=== PATIENT | female | born 1940 | race Caucasian/White ===

== ENCOUNTER 2016-09-26 18:46 | Inpatient (IN) | payer MEDICARE, OTHER ==
[~2016-09-26] VITALS: Ht 167.6 cm; Wt 86.3 kg
[~2016-09-26 18:46] MED LIST: ACET325T21 PO; ACET500T68 PO; ASPI-482 PO; ATOR20TA58 PO; BUPR100T11 PO; BUPR100T6 PO; CALC500T30 PO; CHOL-5 PO; CYAN10002 IM; CYAN500T17 PO; DONE10TA7 PO; DULO30CA43 PO; FERR325T58 PO; INSU100C4 SQ; INSU100I17 SQ; INSU100V13 SQ; LEVO25TA4 PO; LEVO75TA5 PO; LEXAPRO10 MG PO; LINA5TAB4 PO; MAGN2400 PO; MAGN400T3 PO; MEMA10TA PO; METF10002 PO; MULT-208 PO; OLAN2.5T3 PO; OLAN2.5T5 PO; PRADAXA PO; SENN8.6C2 PO; VITAMIN D3 PO; [UNRECOGNIZED DRUG - REMARK]
[2016-09-26] MEDS ORDERED: IV NORMAL SALINE 1,000ML 1,000 ML IV SCH ×2 (18:52→20:00)
--- NOTE | 2016-09-26 19:15 | EKG ---
[address] [address] Test Date: 2016-09-26 Test Time: 19:05:50 Pat Name: JOE MARTE Department: Room: Gender: F Tailer Out: BRADLEY : 1940 Requested By: LATRELL CHAIREZ Order Number: [id number] Reading MD: Tru Berg Measurements Intervals [place] Rate: 106 P: 36 NV: 174 QRS: -34 QRSD: 94 T: 3 QT: 324 QTc: 432 Interpretive Statements SINUS TACHYCARDIA ABNORMAL LEFT AXIS DEVIATION QRS(T) CONTOUR ABNORMALITY CONSIDER ANTEROSEPTAL MYOCARDIAL DAMAGE CONSISTENT WITH INFERIOR INFARCT PROBABLY OLD RI6.01 Unconfirmed report Compared to ECG 02/09/2015 16:43:08 Myocardial infarct finding now present Sinus rhythm no longer present Prolonged QT interval no longer present Electronically Signed On 09-29-2016 10:46:40 CDT by Tru Berg
--- NOTE | 2016-09-26 19:18 | PHYS DOC ---
Past History Past Medical History: A-Fib, Constipation, Dementia, Depression, Diabetes, Hypertension, Hypothyroid, Pneumonia Past Surgical History: No Surgical History, Other Alcohol Use: None Drug Use: None Adult General Chief Complaint Chief Complaint: HYPERGLYCEMIA HPI HPI Patient is a 76 year old sex who presents to the emergency department with initial report for evaluation of suicidal ideation per the patient's senior care. However on arrival to the emergency department, the patient denies any thoughts of suicide. Patient denies any other complaints. Patient's blood sugar was checked prior to arrival and was found to be critically high. Patient has history of dementia and diabetes mellitus currently on insulin therapy. The patient was given 10 units of insulin prior to arrival by EMS. The patient currently is oriented to herself but is disoriented to location. Patient is a poor historian. Review of Systems Review of Systems Caveat: Patient demented and poor historian Constitutional: Denies fever or chills [] Eyes: Denies change in visual acuity, redness, or eye pain [] HENT: Denies nasal congestion or sore throat [] Respiratory: Denies cough or shortness of breath [] Cardiovascular: Denies chest pain or edema [] GI: Denies abdominal pain, nausea, vomiting, bloody stools or diarrhea [] : Denies dysuria or hematuria [] Musculoskeletal: Denies back pain or joint pain [] Integument: Denies rash or skin lesions [] Neurologic: Denies headache, focal weakness or sensory changes [] Current Medications Current Medications Current Medications Medications (Trade) Dose Ordered Sig/Rodolfo Start Time Stop Time Status Last Admin Dose Admin Sodium Chloride 1,000 ml @ 1,000 mls/hr Q1H 09/26/16 18:52 09/26/16 19:51 UNV Allergies Allergies Allergies Coded Allergies Type Severity Reaction Last Updated Verified codeine Allergy Intermediate 07/07/14 Yes Physical Exam Physical Exam Constitutional: Alert, afebrile, appears in chronically poor health [] HENT: Normocephalic, atraumatic, bilateral external ears normal, oropharynx moist, no oral exudates, nose normal. [] Eyes: PERRLA, EOMI, conjunctiva normal, no discharge. [] Neck: Normal range of motion, no tenderness, supple, no stridor. [] Cardiovascular: Sinus tachycardia, regular rhythm, no murmur [] Lungs & Thorax: Bilateral breath sounds clear to auscultation [] Abdomen: Bowel sounds normal, soft, no tenderness, no masses, no pulsatile masses. [] Skin: Warm, dry, no erythema, no rash. [] Back: No tenderness, no CVA tenderness. [] Extremities: No tenderness, no cyanosis, no clubbing, ROM intact, no edema. [] Neurologic: Alert and oriented to self only, normal motor function, normal sensory function, no focal deficits noted. [] Current Patient Data Vital Signs Vital Signs Date Time Temp Pulse Resp B/P (MAP) Pulse Ox O2 Delivery O2 Flow Rate FiO2 09/26/16 18:46 99.5 109 20 96 Nasal Cannula 3.0 EKG EKG Interpreted by me: Heart rate 106, sinus tachycardia, normal intervals, leftward axis, no acute ST/T-wave abnormalities present [] Radiology/Procedures Radiology/Procedures One view AP chest x-ray interpreted by me: Multifocal infiltrates bilaterally, no effusions, normal cardiac silhouette [] Course & Med Decision Making Course & Med Decision Making Pertinent Labs and Imaging studies reviewed. (See chart for details) The patient's chest x-ray shows evidence of multifocal pneumonia. Given patient' s senior care setting, the patient will be started on treatment with vancomycin , Zosyn, and Levaquin for coverage of healthcare associated pneumonia. Patient also started on IV fluids in the emergency department. The patient was noted to have an elevated lactic acid level which could be due to dehydration from uncontrolled diabetes mellitus versus possible sepsis given the finding of pneumonia. The patient's vital signs and lab work otherwise do not meet criteria for severe sepsis at this time, nevertheless the patient will receive a 30 mL per kilo bolus of fluids. I spoke with Dr. Cohen who accepted care patient in hospital. Dragon Disclaimer Dragon Disclaimer This chart was dictated in whole or in part using Voice Recognition software in a busy, high-work load, and often noisy Emergency Department environment. It may contain unintended and wholly unrecognized errors or omissions. Departure Departure: Impression: Primary Impression: HCAP (healthcare-associated pneumonia) Additional Impressions: Uncontrolled diabetes mellitus Dehydration Lactic acidosis Disposition: ADMITTED INPATIENT Admitting Physician: Paramjit Cohen Condition: GUARDED Referrals: PARAMJIT COHEN DO (PCP) Problem Qualifiers Additional Impressions: Uncontrolled diabetes mellitus Diabetes mellitus type: type 1 Diabetes mellitus complication status: with hyperglycemia Qualified Codes: E10.65 - Type 1 diabetes mellitus with hyperglycemia LATRELL CHAIREZ MD Sep 26, 2016 19:18
[2016-09-26 19:28] LABS: BASO # 0.1 x10^3/uL (0.0-0.2); BASO % 1 % (0-3); EOS # 0.4 x10^3/uL (0.0-0.7); EOS % 4 % (0-3); HEMATOCRIT 37.1 % (36.0-47.0); HEMOGLOBIN 11.7 g/dL (12.0-15.5); LYMPH % 9 % (24-48); MEAN CORPUSCULAR HEMOGLOBIN 26 pg (25-35); MEAN CORPUSCULAR HGB CONC 32 g/dL (31-37); MEAN CORPUSCULAR VOLUME 84 fL (79-100); MONO # 1.2 x10^3/uL (0.0-1.1); MONO % 11 % (0-9); NEUT # 8.8 x10^3uL (1.8-7.7); NEUT % 77 % (31-73); PLATELET COUNT 277 x10^3/uL (140-400); RED BLOOD COUNT 4.44 x10^6/uL (3.50-5.40); WHITE BLOOD COUNT 11.4 x10^3/uL (4.0-11.0)
[2016-09-26] MEDS ORDERED: PIP/TAZO PER PHARMACY MC PRN (19:30)
[2016-09-26 19:58] LABS: ALBUMIN 3.1 g/dL (3.4-5.0); ALBUMIN/GLOBULIN RATIO 0.8 (1.0-1.7); CALCIUM 9.3 mg/dL (8.5-10.1); CREATININE 1.6 mg/dL (0.6-1.0); GFR 31.4; POTASSIUM 4.4 mmol/L (3.5-5.1); TOTAL BILIRUBIN 0.5 mg/dL (0.2-1.0); TOTAL PROTEIN 6.8 g/dL (6.4-8.2)
[2016-09-26 20:04] LABS: CLARITY,URINE CLEAR; COLOR,URINE STRAW
[2016-09-26 20:05] LABS: AMORPHOUS SEDIMENT,UR PRESENT /HPF; BACTERIA,URINE 0 /HPF (0-FEW); BILIRUBIN,URINE NEG (NEG); GLUCOSE,URINE >=1000 mg/dL (NEG); NITRITE,URINE NEG (NEG); SQUAMOUS EPITHELIAL CELL,UR OCC /LPF; UROBILINOGEN,URINE 0.2 mg/dL (0.2 mg/dL); WBC,URINE OCC /HPF (0-4)
[2016-09-26] MEDS ORDERED: VANCOMYCIN 1 GM VIAL. ONE (20:21)
[2016-09-26] MEDS ORDERED: IV NORMAL SALINE 500ML 500 ML ONE (20:21)
[2016-09-26] MEDS ORDERED: VANCOMYCIN 2 GM in IV NORMAL SALINE 500ML 500 ML IV ONE (20:30)
[2016-09-26] MEDS ORDERED: DEXTROSE 50% 25 GM / 50ML DISP.SYRIN. IV PRN (20:30)
[2016-09-26] MEDS ORDERED: ONDANSETRON PF 4 MG/2 ML VIAL. IV PRN (20:30)
[2016-09-26] MEDS ORDERED: ACETAMINOPHEN 325 MG TABLET PO PRN (20:30)
[2016-09-26] MEDS ORDERED: INSULIN DETEMIR 300 UNITS/3 ML INSULN.PEN. SQ SCH (21:00)
[2016-09-26 21:48] VITALS: BP 120/64
[2016-09-26] MEDS: INSULIN ASPART 300 UNITS/3 ML INSULN.PEN SQ SCH (22:03)
[2016-09-26] MEDS: VANCOMYCIN PER PHARMACY MC PRN (22:09)
[2016-09-26] MEDS ORDERED: OLAN5TAB9 PO (23:48)
[2016-09-26] MEDS ORDERED: MIRT15TA PO (23:48)
[2016-09-26] MEDS ORDERED: ENOX40DI SQ (23:50)
[2016-09-27] MEDS: PIPERACILLIN/TAZOBACTAM 3.375 GM in IV NORMAL SALINE 50ML 50 ML IV SCH ×2 (01:11→05:43)
[2016-09-27] MEDS: IV NORMAL SALINE 1,000ML 1,000 ML IV SCH ×3 (01:12→20:29)
--- NOTE | 2016-09-27 03:33 | ACF ---
Admission Criteria Forms DIABETES Clinical Indications for Admission to Inpatient Care (Place 'X' for any and all applicable criteria): Admission is indicated by presence of ALL (if I & II) or ANY ONE (if III or IV) of the following (1)(2)(3)(4): [ ]I. Diabetes is uncontrolled as indicated by ANY ONE of the following: [ ]a) Diabetic ketoacidosis as indicated by ALL of the following (8): [ ]i) Hyperglycemia (eg, plasma glucose greater than 200 mg/ dL (11.1 mmol/L)) [ ]ii) Acidosis (eg, arterial pH less than 7.30, serum bicarbonate level less than 15 mEq/L (mmol/L)) [ ]iii) Moderate ketonuria or ketonemia [ ]b) Hyperglycemic hyperosmolar state as indicated by ALL of the following(9)(10): [ ]i) Neurologic dysfunction (eg, stupor, coma, hemiparesis , seizure)(13) [ ]ii) Plasma glucose greater than 600 mg/dL (33.3 mmol/L) [ ]iii) Serum osmolality greater than 320 mOsm/kg (mmol/kg) [ ]c) Severe signs or symptoms secondary to hyperglycemia indicated by ANY ONE of the following: [ ]i) Altered mental status(10) [ ]ii) Significant hypovolemia or dehydration [ ]iii) Intractable nausea or vomiting [ ]iv) Unexplained fever or severe infection [ ]v) Severe electrolyte abnormality (eg, hypokalemia, hyperkalemia, hypernatremia) [ ]II. Management at other levels of care (Also use Diabetes: Observation Care as appropriate) is not feasible because of ANY ONE of the following: [ ]a) Condition was not adequately corrected with treatment at other levels of care. [ ]b) Treatment at other levels of care is not appropriate because of condition severity (eg, hyperosmolar coma). [X]III. Contraindications and/or Inappropriate clinical situations for Observational Care in patients with Diabetes, when ANY ONE of the following is required: [X]a) Patient require specific diagnostic workup or therapeutic intervention 22 [ ]b) Patient with abnormal vital signs or altered mental status 23 [ ]IV. General contraindications and/or Inappropriate clinical situations for Observational Care in patients with Diabetes, when ANY ONE of the following is required: [ ]a) Prediction of prolongation of LOS based on ANY ONE of the following may be considered as a contraindication for observational care 2, 3, 4, 5, 6, 7, 8, 9, 10, 11 [ ]i) Age > 65 yrs. [ ]ii) Patient arriving by ambulance [ ]iii) Patient with high acuity [ ]iv) Patient requiring vital sign monitoring [ ]v) Patient on IV medication [ ]b) Systolic blood pressures 180mmHg 3,12 [ ]c) Patient with altered mental status including delirium and other alteration of consciousness, (3) [ ]d) Patient whose discharge disposition will be to a usp home or rehabilitation home should not be managed in Emergency Department Observation Unit. CMS rule requires 3 days hospital stay before such placement.3,13 [ ]e) Patient with failure to thrive due to broad array of etiologies 3,16,17 [ ]f) Inability to ambulate 3,14 Extended stay beyond goal length of stay may be needed for(3)(20): [ ]a) Treatment of precipitating causes [ ]b) Development of hypoglycemia [ ]c) Complications of treatment [ ]d) Complications of decompensated diabetes (eg, acute gastric dilatation, persistent metabolic or neurologic derangement) [ ]e) Active Comorbidities [ ]f) Older patients( 65 years or older) The original [employer] content created by [employer] has been revised. The portions of the content which have been revised are identified through the use of italic text or in bold,and [facility] has neither reviewed nor approved the modified material. All other unmodified content is copyright [employer]. Please see references footnoted in the original [facility] edition 2015 Admission Criteria Met?: Yes JOEL ESCALANTE Sep 27, 2016 03:33
[2016-09-27 05:26] VITALS: BP 116/68
[2016-09-27 06:15] LABS: BASO # 0.1 x10^3/uL (0.0-0.2); BASO % 1 % (0-3); EOS # 1.1 x10^3/uL (0.0-0.7); EOS % 12 % (0-3); HEMATOCRIT 34.5 % (36.0-47.0); HEMOGLOBIN 11.3 g/dL (12.0-15.5); LYMPH # 1.2 x10^3/uL (1.0-4.8); LYMPH % 13 % (24-48); MEAN CORPUSCULAR HEMOGLOBIN 27 pg (25-35); MEAN CORPUSCULAR HGB CONC 33 g/dL (31-37); MEAN CORPUSCULAR VOLUME 81 fL (79-100); NEUT # 5.9 x10^3uL (1.8-7.7); NEUT % 64 % (31-73); PLATELET COUNT 252 x10^3/uL (140-400); RED BLOOD COUNT 4.27 x10^6/uL (3.50-5.40); RED CELL DISTRIBUTION WIDTH 15.5 % (11.5-14.5); WHITE BLOOD COUNT 9.3 x10^3/uL (4.0-11.0)
[2016-09-27 06:22] LABS: CALCIUM 9.1 mg/dL (8.5-10.1); GFR 54.1
[2016-09-27 06:23] LABS: POTASSIUM 3.7 mmol/L (3.5-5.1)
[2016-09-27 06:28] LABS: MONO % 11 % (0-9)
[2016-09-27] MEDS: INSULIN ASPART 300 UNITS/3 ML INSULN.PEN SQ SCH ×6 (08:00→20:35)
[2016-09-27] MEDS ORDERED: ACETAMINOPHEN 325 MG TABLET PO PRN (08:45)
--- NOTE | 2016-09-27 08:57 | RAD ---
EXAM: Chest one view. HISTORY: Cough, weakness, congestion. COMPARISON: 02/09/2015. FINDINGS: A frontal view of the chest is obtained. Bilateral interstitial and airspace opacities are significantly increased since the prior study. Lung volumes are smaller. There is no pneumothorax or pleural effusion. The heart is not enlarged. IMPRESSION: 1. Increased interstitial and airspace opacities may indicate interval worsening of interstitial lung disease and fibrosis, and/or superimposed multifocal pneumonia on pre-existing interstitial disease. Correlate for evidence of infection.
[2016-09-27] MEDS: buPROPion 100 MG TABLET PO SCH ×2 (09:00→20:29)
[2016-09-27] MEDS ORDERED: MAGNESIUM HYDROXIDE 2,400 MG/30 ML ORAL.SUSP. PO PRN (09:30)
[2016-09-27] MEDS: ASPIRIN ENTERIC COATED 81 MG TABLET.DR. PO SCH (09:37)
[2016-09-27] MEDS: MAGNESIUM OXIDE 400 MG TABLET PO SCH (09:38)
[2016-09-27] MEDS: MEMANTINE 10 MG TABLET. PO SCH ×2 (09:38→20:30)
[2016-09-27] MEDS: FERROUS SULFATE 325 MG TABLET PO SCH (09:38)
[2016-09-27] MEDS: LINAGLIPTIN 5 MG TABLET PO SCH (09:38)
[2016-09-27] MEDS: MULTIVITAMIN with MINERAL TABLET. PO SCH (09:39)
[2016-09-27] MEDS: ENOXAPARIN 40 MG/0.4 ML DISP.SYRIN. SQ SCH (09:39)
[2016-09-27 11:37] VITALS: BP 123/61
[2016-09-27] MEDS: PIPERACILLIN/TAZOBACTAM 4.5 GM in IV NORMAL SALINE 50ML 50 ML IV SCH ×2 (12:03→20:29)
[2016-09-27] MEDS ORDERED: IOHEXOL 300 MG/ML 75 ML VIAL. IV ONE (12:30)
--- NOTE | 2016-09-27 13:42 | HP ---
ADMIT DATE: 09/27/2016 REASON FOR ADMISSION: Pneumonia. HISTORY OF PRESENT ILLNESS: This is a 76-year-old resident of [facility] [place]. She was initially brought over to the Emergency Room because she was complaining of suicidal ideation, which she denied upon arriving at the Emergency Room. However, the patient's blood sugar was markedly high, it was high at 509 and subsequent workup revealed lactic acidosis and positive severe sepsis screen. The patient was found to possibly have multilobar pneumonia and was admitted. PAST MEDICAL HISTORY: The patient recently broke her hip in early August and was treated with left hip hemiarthroplasty. She was returned to the [facility] on 08/19/2016 where she was on snf services. She was diagnosed with pneumonia on 09/02/2016 and had a Z-CHAPARRO. Other medical problems include dementia, which has been at least 5 years, previous history of pneumonia, history of falls, left hip fracture, major depressive disorder. She has also broken a bone in the previous . She has type 2 diabetes, poorly controlled because she is noncompliant. ALLERGIES: CODEINE. MEDICATIONS: Reviewed. As stated, the patient often refuses her insulin and refuses to have her blood sugar checked. SOCIAL HISTORY: Resides at [facility]. She does have a son who is emergency contact, but does not visit her very much. She is a former smoker, does not smoke at [facility]. Alcohol, unknown. REVIEW OF SYSTEMS: The patient just states she is tired and does not feel well. OBJECTIVE: VITAL SIGNS: Temp yesterday was 99.5, pulse 109, blood pressure 138/53, pulse ox was 96% on 3 liters. GENERAL: Color is poor, she has a grayish color. Her tongue was moist. Could not see her throat. NECK: Supple. LUNGS: With coarse breath sounds bilaterally. CARDIOVASCULAR: Regular rhythm and rate. ABDOMEN: Soft, nontender. EXTREMITIES: Without edema. LABORATORY DATA: White blood cell count yesterday was 11.4 with some elevated monocytes. Chemistry: She had an initial glucose of 509. BNP 570. Dilute urine glucose greater than a 1000. Chest x-ray. The patient has extensive pulmonary fibrosis and probably interstitial multifocal pneumonia. ASSESSMENT: 1. Multifocal pneumonia. 2. Interstitial lung fibrosis, worsening. 3. Type 2 diabetes, poor control. 4. Dementia. 5. Fall risk. 6. Recent hip fracture. 7. Positive severe sepsis screen, on antibiotics. 8. Chronic kidney disease stage III. 9.Recent left hip fracture. PLAN: PT and OT, IV antibiotics, monitoring glucose to check from falling. PARAMJIT FUNK DO DR: SUSAN/kenya JOB#: [id number] / [id number]
--- NOTE | 2016-09-27 14:03 | RAD ---
EXAM: CT OF THE CHEST WITH INTRAVENOUS CONTRAST. HISTORY: Shortness of breath, cough, pulmonary fibrosis. TECHNIQUE: Computed tomography of the chest was performed after the intravenous administration of 75 mL Omnipaque 300. COMPARISON: None. FINDINGS: Images of the upper abdomen reveal no acute abnormality. Bone windows reveal no suspicious lesions. Prominent mediastinal lymph nodes can be seen in the setting of pulmonary fibrosis. A subaortic node measures 16 x 10 mm. There are no clearly pathologically enlarged nodes. There is no pleural or pericardial effusion. The heart is not enlarged. There is diffuse basilar and subpleural predominant septal line thickening and cystic change consistent with interstitial lung disease and fibrosis. There is a superimposed component of groundglass opacity. A more discrete nodule in the right upper lobe on image 52 measures 12 x 10 mm. There is diffuse respiratory motion artifact. This limits assessment for pulmonary emboli but none are seen. IMPRESSION: 1. Interstitial lung disease and fibrosis. A component of groundglass opacity may nonspecific interstitial pneumonia, or indicate superimposed mild to moderate pulmonary edema or atypical pneumonia. 2. A 12 mm solid nodule in the right upper lobe is indeterminate. Percutaneous biopsy, PET/CT or follow-up is recommended if long-term stability is not already known. 3. Chronic mediastinal lymph nodes can be seen in the setting of interstitial lung disease. *One or more of the following individualized dose reduction techniques were utilized for this examination: 1. Automated exposure control. 2. Adjustment of the mA and/or kV according to patient size. 3. Use of iterative reconstruction technique.
[2016-09-27 15:42] VITALS: BP 101/65
[2016-09-27 18:48] VITALS: BP 109/62
[2016-09-27] MEDS: ATORVASTATIN CALCIUM 20 MG TABLET PO SCH (20:29)
[2016-09-27] MEDS: MIRTAZAPINE 15 MG TABLET PO SCH (20:30)
[2016-09-27] MEDS: SENNOSIDES 8.6 MG TABLET PO SCH (20:30)
[2016-09-27] MEDS: VANCOMYCIN 1.25 GM in IV NORMAL SALINE 250ML 250 ML IV SCH (20:30)
[2016-09-27] MEDS: DONEPEZIL HCL 10 MG TABLET PO SCH (20:30)
[2016-09-27] MEDS: OLANZapine 5 MG TABLET PO SCH (20:30)
[2016-09-27] MEDS: INSULIN DETEMIR 300 UNITS/3 ML INSULN.PEN. SQ SCH (20:37)
[2016-09-28 00:08] VITALS: BP 109/69
[2016-09-28] MEDS: PIPERACILLIN/TAZOBACTAM 4.5 GM in IV NORMAL SALINE 50ML 50 ML IV SCH ×5 (00:12→23:13)
[2016-09-28 06:09] VITALS: BP 123/76
[2016-09-28] MEDS ORDERED: FUROSEMIDE 20 MG/2 ML VIAL IVP ONE (07:00)
[2016-09-28] MEDS: INSULIN ASPART 300 UNITS/3 ML INSULN.PEN SQ SCH ×7 (08:00→19:54)
[2016-09-28] MEDS ORDERED: INSULIN ASPART 300 UNITS/3 ML INSULN.PEN SQ ONE ×2 (08:00→12:45)
[2016-09-28] MEDS: ENOXAPARIN 40 MG/0.4 ML DISP.SYRIN. SQ SCH (08:25)
[2016-09-28] MEDS: CHOLECALCIFEROL (VITAMIN D3) 1,000 UNIT TABLET PO SCH (08:26)
[2016-09-28] MEDS: MAGNESIUM OXIDE 400 MG TABLET PO SCH (08:27)
[2016-09-28] MEDS: ASPIRIN ENTERIC COATED 81 MG TABLET.DR. PO SCH (08:27)
[2016-09-28] MEDS: LINAGLIPTIN 5 MG TABLET PO SCH (08:27)
[2016-09-28] MEDS: SENNOSIDES 8.6 MG TABLET PO SCH ×2 (08:27→20:02)
[2016-09-28] MEDS: FERROUS SULFATE 325 MG TABLET PO SCH (08:27)
[2016-09-28] MEDS: MULTIVITAMIN with MINERAL TABLET. PO SCH (08:27)
[2016-09-28] MEDS: MEMANTINE 10 MG TABLET. PO SCH ×2 (08:27→19:51)
[2016-09-28] MEDS: INSULIN DETEMIR 300 UNITS/3 ML INSULN.PEN. SQ SCH ×2 (09:00→19:53)
--- NOTE | 2016-09-28 09:54 | RAD ---
EXAM: Chest one view. HISTORY: Pulmonary edema. COMPARISON: 09/26/2016. FINDINGS: A frontal view of the chest is obtained. Bilateral interstitial and airspace opacities persist. The inspiration is smaller than on the prior study. There is no pneumothorax or pleural effusion. The heart is not enlarged. There are atherosclerotic calcifications of the aorta. IMPRESSION: 1. Stable to mildly increased pulmonary edema or multifocal pneumonia superimposed on interstitial fibrosis.
[2016-09-28] MEDS: buPROPion 100 MG TABLET PO SCH ×3 (10:10→21:00)
[2016-09-28 12:14] LABS: BASO # 0.1 x10^3/uL (0.0-0.2); BASO % 1 % (0-3); EOS # 0.6 x10^3/uL (0.0-0.7); EOS % 6 % (0-3); HEMATOCRIT 36.6 % (36.0-47.0); HEMOGLOBIN 11.6 g/dL (12.0-15.5); LYMPH # 0.7 x10^3/uL (1.0-4.8); LYMPH % 7 % (24-48); MEAN CORPUSCULAR HEMOGLOBIN 26 pg (25-35); MEAN CORPUSCULAR HGB CONC 32 g/dL (31-37); MEAN CORPUSCULAR VOLUME 83 fL (79-100); MONO # 0.9 x10^3/uL (0.0-1.1); MONO % 9 % (0-9); NEUT # 7.7 x10^3uL (1.8-7.7); NEUT % 78 % (31-73); PLATELET COUNT 249 x10^3/uL (140-400); RED CELL DISTRIBUTION WIDTH 15.7 % (11.5-14.5); WHITE BLOOD COUNT 9.9 x10^3/uL (4.0-11.0)
[2016-09-28 12:26] LABS: ALBUMIN 2.7 g/dL (3.4-5.0); ALBUMIN/GLOBULIN RATIO 0.6 (1.0-1.7); CALCIUM 9.2 mg/dL (8.5-10.1); CREATININE 1.5 mg/dL (0.6-1.0); GFR 33.9; POTASSIUM 4.3 mmol/L (3.5-5.1); TOTAL BILIRUBIN 0.7 mg/dL (0.2-1.0)
[2016-09-28 12:32] VITALS: BP 107/53
[2016-09-28] MEDS: LEVOTHYROXINE 25 MCG TABLET. PO SCH (12:40)
[2016-09-28] MEDS: FUROSEMIDE 20 MG/2 ML VIAL IVP SCH (16:20)
[2016-09-28 18:58] VITALS: BP 107/55
[2016-09-28] MEDS: OLANZapine 5 MG TABLET PO SCH ×3 (19:55→23:00)
[2016-09-28] MEDS: MIRTAZAPINE 15 MG TABLET PO SCH ×3 (19:55→23:00)
[2016-09-28] MEDS: ATORVASTATIN CALCIUM 20 MG TABLET PO SCH ×2 (19:55→21:00)
[2016-09-28] MEDS: DONEPEZIL HCL 10 MG TABLET PO SCH ×2 (19:55→21:00)
--- NOTE | 2016-09-28 20:11 | PN ---
DATE: 09/28/2016 PROBLEMS: 1. Severe pulmonary fibrosis. 2. Probable pulmonary edema. 3. Underlying pneumonia. 4. Type 2 diabetes, poor control. 5. Dementia. 6. Fall risk. 7. Recent left hip fracture. 8. Positive severe sepsis screen on antibiotics, doing better. 9. Chronic kidney disease stage 3. 10. Incidental finding of 12 mm right upper lobe nodule and also for interstitial pneumonia or atypical pneumonia. NARRATIVE: The patient is a little short of breath this morning fatigued. She is requiring some oxygen, but even a couple liters gets her sat up to 99. The patient was given some 20 mg Lasix IV yesterday. She did have a lot of urine, but it was all incontinent will probably have to put in a Jean today. OBJECTIVE: VITAL SIGNS: Intake 2515, output 6 ____ weights up 2 pounds. Sats 99 taken by me. GENERAL: The color is grayish. She is a mildly tachypneic at approximately 24. LUNGS: Coarse rhonchi heard in the bases. CARDIOVASCULAR: Regular rhythm and rate. ABDOMEN: Soft, nontender. EXTREMITIES: Without edema. PLAN: Recheck chest x-ray. Discontinue IV fluids. I discontinued one of her antibiotics Levaquin. We will continue the Zosyn and vancomycin for another day. I have ordered an echo for tomorrow, and we will continue to treat her hyperglycemia. The lung tumor and the pulmonary fibrosis or incidental findings are she does not have a diagnosis of this and this will need to be followed up as an outpatient. She sees a different doctor at [facility]. PARAMJIT FUNK DO DR: SUSAN/kenya JOB#: [id number] / [id number]
[2016-09-28 20:45] LABS: VANC TR 15.5 mcg/mL (10.0-20.0)
[2016-09-28] MEDS: VANCOMYCIN 1.25 GM in IV NORMAL SALINE 250ML 250 ML IV SCH (20:52)
[2016-09-28 22:36] VITALS: BP 110/58
[2016-09-29 04:51] VITALS: BP 102/62
[2016-09-29] MEDS: PIPERACILLIN/TAZOBACTAM 4.5 GM in IV NORMAL SALINE 50ML 50 ML IV SCH ×4 (04:54→23:25)
[2016-09-29] MEDS: LEVOTHYROXINE 25 MCG TABLET. PO SCH (04:54)
[2016-09-29] MEDS: SENNOSIDES 8.6 MG TABLET PO SCH ×2 (08:01→21:00)
[2016-09-29] MEDS: VANCOMYCIN PER PHARMACY MC PRN (08:05)
[2016-09-29] MEDS: LINAGLIPTIN 5 MG TABLET PO SCH (08:12)
[2016-09-29] MEDS: buPROPion 100 MG TABLET PO SCH ×2 (08:12→21:26)
[2016-09-29] MEDS: MEMANTINE 10 MG TABLET. PO SCH ×2 (08:12→21:26)
[2016-09-29] MEDS: ASPIRIN ENTERIC COATED 81 MG TABLET.DR. PO SCH (08:13)
[2016-09-29] MEDS: MAGNESIUM OXIDE 400 MG TABLET PO SCH (08:13)
[2016-09-29] MEDS: FERROUS SULFATE 325 MG TABLET PO SCH (08:13)
[2016-09-29] MEDS: MULTIVITAMIN with MINERAL TABLET. PO SCH (08:15)
[2016-09-29] MEDS: CHOLECALCIFEROL (VITAMIN D3) 1,000 UNIT TABLET PO SCH (08:19)
[2016-09-29] MEDS: FUROSEMIDE 20 MG/2 ML VIAL IVP SCH (08:20)
[2016-09-29] MEDS: ENOXAPARIN 40 MG/0.4 ML DISP.SYRIN. SQ SCH (08:21)
[2016-09-29] MEDS: INSULIN DETEMIR 300 UNITS/3 ML INSULN.PEN. SQ SCH (08:34)
[2016-09-29] MEDS: INSULIN ASPART 300 UNITS/3 ML INSULN.PEN SQ SCH ×7 (08:35→21:00)
[2016-09-29 11:34] VITALS: BP 99/55
--- NOTE | 2016-09-29 13:59 | CARD ---
APPROVED REPORT EXAM: Two-dimensional and M-mode echocardiogram with Doppler and color Doppler. Other Information Quality : Good INDICATION Dyspnea Pulmonary Hypertention 2D DIMENSIONS RVDd3.7 (2.9-3.5cm)Left Atrium(2D)2.8 (1.6-4.0cm) IVSd1.4 (0.7-1.1cm)Aortic Root(2D)3.1 (2.0-3.7cm) LVDd3.7 (3.9-5.9cm)LVOT Diameter2.0 (1.8-2.4cm) PWd1.2 (0.7-1.1cm)LVDs2.0 (2.5-4.0cm) FS (%) 30.0 %SV11.3 ml LVEF(%)60.0 (>50%) Aortic Valve AoV Peak Edi.139.7cm/sAoV VTI22.2cm AO Peak GR.7.8mmHgLVOT Peak Edi.123.9cm/s LVOT VTI 22.18cmAO Mean GR.5mmHg BALJIT (VMAX)2.93jd7OEH (VTI)3.03cm2 Mitral Valve MV E Enijblwl31.7cm/sMV DECEL VDLH896op MV A Wuahhlrq75.5cm/sE/A Ratio0.5 Tricuspid Valve TR P. Eignjtvp596mu/sRAP NGCZUSED9fqPs TR Peak Gr.82nvIiBAFY69xgEv Pulmonary Vein S1 Srqtondi497.1cm/sD2 Jbbwdcvw33.0cm/s LEFT VENTRICLE The left ventricle is normal size. There is mild concentric left ventricular hypertrophy. The left ve ntricular systolic function is normal and the ejection fraction is within normal range. The Ejection Fraction is 55-60%. There is normal LV segmental wall motion. Transmitral Doppler flow pattern is Gra de I-abnormal relaxation pattern. RIGHT VENTRICLE The right ventricle is normal size. The right ventricular systolic function is normal. ATRIA The left atrium size is normal. The right atrium size is normal. The interatrial septum is intact wit h no evidence for an atrial septal defect or patent foramen ovale as noted on 2-D or Doppler imaging. AORTIC VALVE The aortic valve is calcified but opens well. Doppler and Color Flow revealed trace aortic regurgitat ion. There is no significant aortic valvular stenosis. MITRAL VALVE The mitral valve is calcified but opens well. There is no evidence of mitral valve prolapse. There is no mitral valve stenosis. Doppler and Color-flow revealed trace to mild mitral regurgitation. TRICUSPID VALVE The tricuspid valve is normal in structure and function. Doppler and Color Flow revealed mild tricusp id regurgitation. There is moderate pulmonary hypertension. The PA pressure was estimated at 50 mmHg. There is no tricuspid valve stenosis. PULMONIC VALVE The pulmonary valve is normal in structure and function. Doppler and Color Flow revealed no pulmonic valvular regurgitation. There is no pulmonic valvular stenosis. GREAT VESSELS The aortic root is normal in size. The ascending aorta is normal in size. The IVC is normal in size a nd collapses >50% with inspiration. PERICARDIAL EFFUSION There is no evidence of significant pericardial effusion. Critical Notification Critical Value: No <Conclusion> The left ventricle is normal size. The left ventricular systolic function is normal and the ejection fraction is within normal range. The Ejection Fraction is 55-60%. There is mild concentric left ventricular hypertrophy. There is no significant aortic valvular stenosis. Doppler and Color Flow revealed trace aortic regurgitation. Doppler and Color-flow revealed trace to mild mitral regurgitation. Doppler and Color Flow revealed mild tricuspid regurgitation. There is moderate pulmonary hypertension. The PA pressure was estimated at 50 mmHg.
[2016-09-29 18:42] VITALS: BP 95/59
--- NOTE | 2016-09-29 20:42 | PN ---
DATE: 09/29/2016 SUBJECTIVE: The patient is resting, slightly propped up in bed, sleeping comfortably in no apparent distress. She is demented; however, the nursing staff stated that she has gotten an episode of diarrhea. She had 4 loose bowel movements this morning and she is complaining of irritation in her perianal area. Denied ____ any other complaint. PHYSICAL EXAMINATION: GENERAL: When I examined her, she looked pale, but no jaundice, cyanosis, or thyromegaly. No jugular venous distention. No limb edema. VITAL SIGNS: Her heart rate was 101, blood pressure was 99/55, temperature was 97.5, respiratory rate 20, and oxygen saturation was 91% on 2.5 liters of oxygen. HEAD, EYES, EARS, NOSE AND THROAT: Showed normocephalic, atraumatic. NECK: Supple. HEART: Showed normal first and second heart sounds with no gallop, rub or murmur. CHEST: Showed central trachea, equal bilateral expansion, air entry, vesicular sounds. She has bilateral coarse early inspiratory crackles consistent with pulmonary fibrosis. I could not really appreciate any rhonchi. ABDOMEN: Distended, soft, nontender. No guarding or rigidity. No organomegaly. Hernial orifices intact. Bowel sounds normal. NEUROLOGIC: She is demented, but without any lateralizing sign. She is able to walk move extremities without difficulty. She walked with a walker with physical therapy. Her intake over the last 24 hours was 1180 and output was 1150. LABORATORY DATA: As of yesterday, her serum sodium was 135, potassium 4.3, chloride 96, bicarbonate 29, anion gap of 10, BUN 11, creatinine 1.5, estimated GFR was 53 mL per minute. Her blood sugar was 446 mg/dL. Calcium was 9.2. Total bilirubin, AST, ALT, alkaline phosphatase were normal. Total protein was 7, albumin was 2.7. ASSESSMENT AND PLAN: Severe pulmonary fibrosis, poorly controlled type 2 diabetes, advanced dementia, fall risk with recent left hip fracture, chronic kidney disease stage 3, questionable pulmonary edema versus pneumonia. So far all her blood cultures were negative, so I discontinued IV vancomycin. We will continue with IV Zosyn. I will repeat all her labs tomorrow and if she remains stable ___ able to discharge home. I made some adjustment of her Levemir insulin and NovoLog insulin, and we will decide on further management accordingly. RUIZ BREWSTER MD DR: SONJA/kenya JOB#: [id number] / [id number]
[2016-09-29] MEDS ORDERED: INSULIN DETEMIR 300 UNITS/3 ML INSULN.PEN. SQ SCH (21:00)
[2016-09-29] MEDS: MIRTAZAPINE 15 MG TABLET PO SCH (21:26)
[2016-09-29] MEDS: OLANZapine 5 MG TABLET PO SCH (21:26)
[2016-09-29] MEDS: ATORVASTATIN CALCIUM 20 MG TABLET PO SCH (21:26)
[2016-09-29] MEDS: DONEPEZIL HCL 10 MG TABLET PO SCH (21:26)
[2016-09-29 23:00] VITALS: BP 104/66
[2016-09-30] MEDS: LEVOTHYROXINE 25 MCG TABLET. PO SCH (05:05)
[2016-09-30] MEDS: PIPERACILLIN/TAZOBACTAM 4.5 GM in IV NORMAL SALINE 50ML 50 ML IV SCH ×2 (05:05→12:40)
[2016-09-30 05:54] VITALS: BP 118/64
[2016-09-30] MEDS: INSULIN ASPART 300 UNITS/3 ML INSULN.PEN SQ SCH ×4 (08:00→12:42)
[2016-09-30] MEDS: ENOXAPARIN 40 MG/0.4 ML DISP.SYRIN. SQ SCH (09:15)
[2016-09-30] MEDS: buPROPion 100 MG TABLET PO SCH (09:15)
[2016-09-30] MEDS: SENNOSIDES 8.6 MG TABLET PO SCH (09:16)
[2016-09-30] MEDS: ASPIRIN ENTERIC COATED 81 MG TABLET.DR. PO SCH (09:16)
[2016-09-30] MEDS: CHOLECALCIFEROL (VITAMIN D3) 1,000 UNIT TABLET PO SCH (09:16)
[2016-09-30] MEDS: MAGNESIUM OXIDE 400 MG TABLET PO SCH (09:16)
[2016-09-30] MEDS: MULTIVITAMIN with MINERAL TABLET. PO SCH (09:16)
[2016-09-30] MEDS: LINAGLIPTIN 5 MG TABLET PO SCH (09:16)
[2016-09-30] MEDS: FERROUS SULFATE 325 MG TABLET PO SCH (09:16)
[2016-09-30] MEDS: MEMANTINE 10 MG TABLET. PO SCH (09:16)
[2016-09-30] MEDS: FUROSEMIDE 20 MG/2 ML VIAL IVP SCH (09:17)
[2016-09-30] MEDS: INSULIN DETEMIR 300 UNITS/3 ML INSULN.PEN. SQ SCH (09:32)
[2016-09-30 10:05] LABS: HEMATOCRIT 38.5 % (36.0-47.0); HEMOGLOBIN 12.4 g/dL (12.0-15.5); RED BLOOD COUNT 4.71 x10^6/uL (3.50-5.40); RED CELL DISTRIBUTION WIDTH 15.9 % (11.5-14.5); WHITE BLOOD COUNT 9.2 x10^3/uL (4.0-11.0)
[2016-09-30 10:25] LABS: ALBUMIN 2.9 g/dL (3.4-5.0); ALBUMIN/GLOBULIN RATIO 0.6 (1.0-1.7); CALCIUM 9.4 mg/dL (8.5-10.1); CREATININE 1.5 mg/dL (0.6-1.0); GFR 33.9; POTASSIUM 3.3 mmol/L (3.5-5.1); TOTAL BILIRUBIN 0.6 mg/dL (0.2-1.0); TOTAL PROTEIN 7.8 g/dL (6.4-8.2)
[2016-09-30 10:35] VITALS: BP 110/62
[2016-09-30] MEDS ORDERED: POTASSIUM CHLORIDE 20 MEQ TABLET.ER. PO ONE (12:50)
--- NOTE | 2016-09-30 20:19 | DS ---
DATE OF DISCHARGE: 09/30/2016 HOSPITAL COURSE: The patient is a 76-year-old female patient [place] at [facility] [place] to the Emergency Room because she was complaining of suicidal ideation, which she denied upon arrival at the Emergency Room; however, the patient's blood sugar was found to be markedly elevated it was 509. Subsequent to workup revealed that she had lactic acidosis and positive severe sepsis screen and it was found to be possibly have multilobar pneumonia and was admitted. She was started on triple antibiotic for possible healthcare-associated pneumonia. All her urine and blood cultures were negative. Her blood sugar is much better controlled. We adjusted her insulin and increase her Lantus to twice a day, and a decision was made given that she stabilize all her lab works are normal due to transfer her back to [facility] to continue on her current medication. I actually discontinued her IV antibiotic and her IV Lasix and her creatinine has slightly risen and potassium has actually is lower, but normal and we will start her on Augmentin 875 mg twice a day for 5 more days. PHYSICAL EXAMINATION: GENERAL: When I examined her this afternoon she looked well and was clearly in no apparent respiratory distress. She was pale, but no jaundice, cyanosis, or thyromegaly. No jugular venous distension. No limb edema. VITAL SIGNS: Her heart rate was 70, blood pressure was 110/62, temperature was 98.1, respiratory rate was 18, and oxygen saturation was 93% on 2 liters of oxygen by nasal cannula. HEAD, EYES, EARS, NOSE, AND THROAT: Showed normocephalic, atraumatic. NECK: Supple. HEART: Showed normal first and second heart sounds with no gallop, rub or murmur. CHEST: Clear to auscultation. No crepitation or rhonchi. ABDOMEN: Distended, soft, nontender. NEUROLOGIC: She was demented, but without any obvious lateralizing sign. She is awake, alert, responding at times appropriately; however, she is mostly confused. All her cranial nerves intact. She moves extremities without difficulty. She apparently is able to ambulate with a walker with assistance. Her intake was 1477, output was 1600. LABORATORY DATA: Her lab work as of this morning showed a white cell count of 9200, hemoglobin 12.4, hematocrit 38.5, MCV 82 and platelet count 154,000. Serum sodium was 140, potassium 3.3, chloride 99, bicarbonate 33, anion gap of 8, BUN 10, creatinine 1.5, estimated GFR was 63.9 mL per minute. Her glucose was 521, calcium was 9.4. Total bilirubin, AST, ALT, alkaline phosphatase were normal. Total protein was 7, albumin was 2.9. DISCHARGE MEDICATIONS: The patient will be discharged back to [facility] to continue on her acetaminophen 650 mg every 6 hours, aspirin 81 mg once a day, atorvastatin calcium 20 mg tablet at bedtime, Wellbutrin 100 mg twice a day, cholecalciferol 5000 units once a day, Aricept 10 mg at bedtime, Lovenox 40 mg subcutaneously once a day, ferrous sulfate 325 mg once a day, detemir insulin 60 units twice a day, and levothyroxine sodium 25 mcg once a day, linagliptin, Tradjenta 5 mg once a day, magnesium hydroxide, milk of magnesia 30 mL p.o. daily p.r.n. for constipation, magnesium oxide 400 mg once a day, Namenda 10 mg twice a day, mirtazapine 15 mg once a day, multivitamin 1 tablet once a day, olanzapine 5 mg 1 tablet once a day, and senna 1 tablet twice a day. FINAL DISCHARGE DIAGNOSES: 1. Severe interstitial lung fibrosis. 2. Poorly controlled type 2 diabetes, much improved. 3. Questionable multifocal healthcare-associated pneumonia. All her blood culture are negative. The patient is hemodynamically stable, afebrile with normal white cell count. I have discontinued her Zosyn, vancomycin, and Levaquin. We will discharge her on Augmentin 875 mg twice a day for 5 more days, dementia, chronic kidney disease, hypokalemia and severe protein-calorie malnutrition with serum albumin is only 2.7 g/dL. The patient will be given 40 mEq of potassium chloride before she is getting discharged. I discontinued her Lasix and I increased her Lantus 16 units twice a day. RUIZ BREWSTER MD DR: SONJA/[email or web address] JOB#: [id number] / [id number]
== END 2016-09-30 13:30 | DRG 871 ==
LOC: ER 18:46 → 1 SOUTH 20:30
PROVIDERS: ADMIT Family Medicine; ATTEND Family Medicine
DX: A41.9 Sepsis, unspecified organism (principal); J18.9 Pneumonia, unspecified organism; E43 Unspecified severe protein-calorie malnutrition; E87.6 Hypokalemia; F03.90 Unspecified dementia, unspecified severity, without behavioral disturbance, psychotic disturbance, mood disturbance, and anxiety; E11.65 Type 2 diabetes mellitus with hyperglycemia; E11.22 Type 2 diabetes mellitus with diabetic chronic kidney disease; F32.9 Major depressive disorder, single episode, unspecified; E86.0 Dehydration; J84.10 Pulmonary fibrosis, unspecified; I12.9 Hypertensive chronic kidney disease with stage 1 through stage 4 chronic kidney disease, or unspecified chronic kidney disease; I48.91 Unspecified atrial fibrillation; Y95 Nosocomial condition; K59.00 Constipation, unspecified; E03.9 Hypothyroidism, unspecified; N18.3 Chronic kidney disease, stage 3 (moderate); Z79.4 Long term (current) use of insulin; Z87.01 Personal history of pneumonia (recurrent); Z68.30 Body mass index [BMI] 30.0-30.9, adult; Z87.891 Personal history of nicotine dependence; Z91.19 Patient's noncompliance with other medical treatment and regimen; Z91.81 History of falling; Z88.5 Allergy status to narcotic agent
CPT/HCPCS: 36415; 71010; 71260; 80048; 80053; 80202; 81001; 82947; 83605; 83880; 85027; 87040; 87086; 87324; 87641; 93005; 93306; 96361; 96365; J1650; J1815; J1956; J2543; J3370; J7040; J7050; Q9967; 97110; 97530; 99285-25; J7030